=== PATIENT | female | born 1980 | race Caucasian/White ===

== ENCOUNTER 2019-06-02 09:25 | Inpatient (IN) | payer OTHER ==
[~2019-06-02] VITALS: Ht 160 cm; Wt 68.6 kg
[2019-06-02 09:38] VITALS: Ht 160 cm; Wt 68.6 kg
[2019-06-02] MEDS ORDERED: LACTATED RINGER'S 1,000 ML IV SCH (09:43)
[2019-06-02 09:49] VITALS: BP 119/74; PULSE 78; RESP 18
[2019-06-02] MEDS ORDERED: METHYLERGONOVINE 0.2 MG INJ IM PRN ×2 (10:00→11:00)
[2019-06-02] MEDS ORDERED: OXYTOCIN 30 UNITS/LR 500 ML IV SCH ×3 (10:00→10:37)
[2019-06-02] MEDS ORDERED: MISOPROSTOL 200 MCG TAB PR PRN ×2 (10:00→11:00)
[2019-06-02] MEDS ORDERED: CARBOPROST 250 MCG INJ IM PRN ×2 (10:00→11:00)
[2019-06-02] MEDS ORDERED: OXYTOCIN 30 UNITS/LR 500 ML IV PRN ×2 (10:00→11:00)
[2019-06-02] MEDS ORDERED: AMPICILLIN 2 GM/NS (PMX) 100 ML IV ONE (10:00)
[2019-06-02] MEDS ORDERED: LIDOCAINE 1% (MPF) 30 ML INJ INJ PRN (10:00)
[2019-06-02] MEDS ORDERED: MINERAL OIL LIGHT 10 ML VIAL TOP STA (10:28)
[2019-06-02] MEDS ORDERED: IBUPROFEN 600 MG TAB PO STA (10:46)
[2019-06-02] MEDS ORDERED: OXYCODONE/ASPIRIN (4.88/325) TAB PO PRN (11:00)
[2019-06-02] MEDS ORDERED: SENNA/DOCUSATE NA (8.6MG/50MG) TAB PO PRN (11:00)
[2019-06-02] MEDS ORDERED: ONDANSETRON 4 MG INJ IV PRN (11:00)
[2019-06-02] MEDS ORDERED: DIPHENHYDRAMINE 25 MG CAP PO PRN (11:00)
[2019-06-02] MEDS ORDERED: NACL 0.9% 3 ML SYG IV SCH (11:00)
[2019-06-02] MEDS ORDERED: LANOLIN HPA 1 PKT TOP PRN (11:00)
[2019-06-02 12:30] VITALS: BP 135/79; PULSE 61; RESP 18
[2019-06-02 13:30] VITALS: BP 136/76; PULSE 63; RESP 18
[2019-06-02] MEDS ORDERED: AMPICILLIN 1 GM/NS (PMX) 50 ML IV SCH (14:00)
[2019-06-02 16:00] VITALS: BP 128/66; PULSE 73; RESP 16
[2019-06-02] MEDS: IBUPROFEN 600 MG TAB PO SCH ×2 (17:41→23:37)
[2019-06-02 19:30] VITALS: BP 124/74; PULSE 65; RESP 18
[2019-06-02] MEDS: SENNA/DOCUSATE NA (8.6MG/50MG) TAB PO SCH (21:14)
[2019-06-03] VITALS: BP 105/72; PULSE 72; RESP 18
[2019-06-03 04:22] VITALS: BP 102/51; PULSE 64; RESP 18
[2019-06-03] MEDS: IBUPROFEN 600 MG TAB PO SCH ×4 (06:00→23:57)
[2019-06-03 08:00] VITALS: BP 109/67; PULSE 70; RESP 20
[2019-06-03] MEDS: SENNA/DOCUSATE NA (8.6MG/50MG) TAB PO SCH ×2 (13:36→21:26)
[2019-06-03 16:00] VITALS: BP 113/70; PULSE 69; RESP 18
[2019-06-03 19:45] VITALS: BP 113/66; PULSE 75; RESP 18
[2019-06-04 03:51] VITALS: BP 107/65; PULSE 75; RESP 18
[2019-06-04] MEDS: IBUPROFEN 600 MG TAB PO SCH (05:37)
[2019-06-04 08:00] VITALS: BP 116/75; PULSE 65; RESP 18
[2019-06-04] MEDS: SENNA/DOCUSATE NA (8.6MG/50MG) TAB PO SCH (09:27)
== END 2019-06-04 11:40 | disposition home or self-care (01) | DRG 807 ==
LOC: OBT 09:25 → L-D 09:25 → OBT 09:32 → L-D 09:32 → PP1 12:18
PROVIDERS: ADMIT Obstetrics & Gynecology; ATTEND Obstetrics & Gynecology
PROC: 10E0XZZ Delivery of Products of Conception, External Approach (ICD-10-PCS; principal; 2019-06-02)
DX: O80 Encounter for full-term uncomplicated delivery (principal); Z37.0 Single live birth; Z3A.39 39 weeks gestation of pregnancy
CPT/HCPCS: 85025; 85610; 85730; 86592; 86850; 86900; 86901; G0463; J0290; J2210; J2590; J7120